=== PATIENT | male | born 2000 | race African-American/Black ===

== ENCOUNTER 2021-08-08 13:14 | Emergency (ER) | payer MEDICAID ==
[~2021-08-08] VITALS: Ht 182.9 cm; Wt 83.0 kg
[2021-08-08] MEDS ORDERED: IBUPROFEN 800MG TABLET PO ONE (15:00)
[2021-08-08] MEDS ORDERED: TRAMADOL 50MG TABLET PO ONE (16:00)
[2021-08-08] MEDS ORDERED: TRAM50TA3 MT (16:04)
[2021-08-08 16:28] VITALS: BP 104/56
== END 2021-08-08 16:33 | disposition home or self-care (01) ==
LOC: ER 13:14
DX: S39.012A Strain of muscle, fascia and tendon of lower back, initial encounter (principal); S83.8X2A Sprain of other specified parts of left knee, initial encounter; V43.52XA Car driver injured in collision with other type car in traffic accident, initial encounter; Y93.89 Activity, other specified; Y92.414 Local residential or business street as the place of occurrence of the external cause
CPT/HCPCS: 73562; 99283

== ENCOUNTER 2021-10-11 11:25 | Emergency (ER) | payer SELFPAY ==
[~2021-10-11] VITALS: Ht 182.9 cm; Wt 77.0 kg
[~2021-10-11 11:25] MED LIST: TRAM50TA3 MT
[2021-10-11 11:26] VITALS: BP 132/80
[2021-10-11] MEDS ORDERED: CYCLOBENZAPRINE 10MG TABLET PO ONE (11:45)
[2021-10-11] MEDS ORDERED: ACETAMINOPHEN 325MG TABLET PO ONE (11:45)
== END 2021-10-11 13:11 | disposition left against medical advice (07) ==
LOC: ER 11:25
DX: R51.9 Headache, unspecified (principal); R07.89 Other chest pain
CPT/HCPCS: 71045; 99283